=== PATIENT | female | born 1955 | race African-American/Black ===

== ENCOUNTER → 2020-03-29 | Outpatient (CLI) | payer MEDICARE | LOC: BHSO 10:53 | DX: F43.10 Post-traumatic stress disorder, unspecified (principal) ==

== ENCOUNTER → 2020-04-24 | Outpatient (CLI) | payer MEDICARE | LOC: BHSO 15:07 | DX: F43.10 Post-traumatic stress disorder, unspecified (principal) | CPT/HCPCS: G0463 ==